=== PATIENT | female | born 1940 | race Caucasian/White ===

== ENCOUNTER 2019-03-17 18:34 | Emergency (ER) | payer MEDICARE, OTHER ==
[2019-03-17] MEDS ORDERED: OXYCODONE-ACETAMINOPHEN 5-325 MG TABLET PO ONE (18:46)
--- NOTE | 2019-03-17 18:51 | ER Document Report ---
ED Medical Screen (RME) - General Chief Complaint: Facial Injury Stated Complaint: FALL/HEAD INJURY Time Seen by Provider: 03/17/19 18:40 Mode of Arrival: Wheelchair Information source: Patient, Relative - Notes: Patient is a 78-year-old female presenting to the emergency department after falling. Patient reports she fell down 3 concrete steps. Patient states she is unsure what made her fall, she does not recall the events leading up to the fall. She is unsure if she felt dizzy or faint prior to the fall. She does have a laceration to the left side of her face over the temporal area, she states that she has pain with talking and moving her jaw. She also has a deformity to her left forearm area near the wrist. I have greeted and performed a rapid initial assessment of this patient. A comprehensive ED assessment and evaluation of the patient, analysis of test results and completion of the medical decision making process will be conducted by additional ED providers. I have specifically instructed the patient or family members with the patient to immediately return to any nursing staff should anything change in the patient's condition or with their chief complaint. This medical record was dictated with voice recognizing software. There may be grammatical, syntax errors that are unintended. Physical Exam - Vital signs Vitals: Temp Pulse Resp BP Pulse Ox 97.8 F 75 20 150/75 H 99 03/17/19 18:40 03/17/19 18:40 03/17/19 18:40 03/17/19 18:40 03/17/19 18:40 Course - Vital Signs Vital signs: Temp Pulse Resp BP Pulse Ox 97.8 F 75 20 150/75 H 99 03/17/19 18:40 03/17/19 18:40 03/17/19 18:40 03/17/19 18:40 03/17/19 18:40
--- NOTE | 2019-03-17 19:49 | RADIOLOGY REPORT (SQ) ---
EXAM DESCRIPTION: FOREARM LEFT COMPLETED DATE/TIME: 03/17/2019 7:20 pm REASON FOR STUDY: fall, pain in FA and wrist COMPARISON: None. NUMBER OF VIEWS: Two views. TECHNIQUE: Two radiographic images acquired of the left forearm, including elbow and wrist in at jose [facility] one projection. LIMITATIONS: None. FINDINGS: MINERALIZATION: Normal. BONES: Displaced fracture of the distal left radius with volar and medial displacement of distal radi al fracture fragment and volar displacement of the wrist. Fracture through the base ulnar styloid. Degenerative arthritis 1st carpometacarpal joint. OTHER: Soft tissue swelling seen. IMPRESSION: Evidence of a distal left radial fracture with volar and medial displacement distal frac ture fragment fracture through ulna styloid. TECHNICAL DOCUMENTATION: JOB ID: [id number] [employer]- All Rights Reserved Reading location - IP/workstation name: [email or web address]
[2019-03-17 19:58] LABS: ABSOLUTE BASOPHILS # (AUTO) 0.1 10^3/uL (0.0-0.2); ABSOLUTE EOSINOPHILS # (AUTO) 0.1 10^3/uL (0.0-0.6); ABSOLUTE LYMPHOCYTES (AUTO) 1.2 10^3/uL (0.5-4.7); ABSOLUTE MONOCYTES (AUTO) 0.4 10^3/uL (0.1-1.4); BASOPHILS % (AUTO) 0.8 % (0-2); HEMATOCRIT 37.5 % (36.0-47.0); HEMOGLOBIN 12.5 g/dL (12.0-15.5); LYMPHOCYTES % (AUTO) 17.5 % (13-45); MEAN CORPUSCULAR HEMOGLOBIN 29.4 pg (27.0-33.4); MEAN CORPUSCULAR HGB CONC 33.3 g/dL (32.0-36.0); MEAN CORPUSCULAR VOLUME 88 fl (80-97); MONOCYTES % (AUTO) 5.6 % (3-13); PLATELET COUNT 270 10^3/uL (150-450); RED BLOOD COUNT 4.25 10^6/uL (3.72-5.28); RED CELL DISTRIBUTION WIDTH 14.5 % (11.5-14.0); SEGMENTED NEUTROPHILS % (AUTO) 75.1 % (42-78); TOTAL CELLS COUNTED % (AUTO) 100 %; WHITE BLOOD COUNT 6.6 10^3/uL (4.0-10.5)
[2019-03-17] MEDS ORDERED: DIPH/PERTUSS(ACELL)/TETANUS VAC/PF 0.5 ML SYR (>=10YO) IM ONE (20:17)
[2019-03-17] MEDS ORDERED: MORPHINE SULFATE 10 MG/ML INJ IV ONE (20:17)
[2019-03-17] MEDS ORDERED: ONDANSETRON HCL INJ/PF 4 MG/2 ML SDV IV ONE (20:17)
[2019-03-17] MEDS ORDERED: LIDOCAINE 1% INJ (10 MG/ML) 10 ML MDV INJ ONE ×2 (20:18→22:34)
[2019-03-17] MEDS ORDERED: LIDOCAINE 1%/EPINEPHRINE INJ 20 ML VIAL INJ ONE ×2 (20:18→22:32)
[2019-03-17 20:19] LABS: ALBUMIN 4.9 g/dL (3.5-5.0); ALKALINE PHOSPHATASE 67 U/L (38-126); ANION GAP 12 (5-19); ASPARTATE AMINO TRANSFERASE 27 U/L (14-36); BILIRUBIN,DIRECT 0.2 mg/dL (0.0-0.4); BILIRUBIN,TOTAL 0.3 mg/dL (0.2-1.3); BLOOD UREA NITROGEN 25 mg/dL (7-20); CARBON DIOXIDE 27 mmol/L (22-30); CHLORIDE 104 mmol/L (98-107); GLUCOSE 76 mg/dL (75-110); POTASSIUM 3.8 mmol/L (3.6-5.0); TOTAL PROTEIN 8.4 g/dL (6.3-8.2)
--- NOTE | 2019-03-17 20:19 | RADIOLOGY REPORT (SQ) ---
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 COMPARISON: None. TECHNIQUE: CT scan of the brain, cervical spine, and facial bones without IV contrast. This exam was performed according to our departmental dose-optimization program, which includes automated exposure control, adjustment of the mA and/or kV according to patient size and/or use of iterative reconstruction technique. FINDINGS: BRAIN: The ventricles, cisterns, and sulci are age-appropriate. No evidence of acute infarction, intracranial hemorrhage, extra-axial fluid collection, or midline shift. No depressed skull fracture. CERVICAL SPINE: No acute cervical fracture or prevertebral soft tissue swelling is seen. There is straightening of the normal cervical lordosis, which may be due to cervical collar, muscle spasm, or patient positioning. Multilevel degenerative disc disease along with facet arthropathy is present. No advanced spinal canal stenosis. FACIAL BONES: No acute facial bone fracture is seen. No air-fluid levels are seen in the paranasal sinuses. The mastoid air cells are clear. No retrobulbar mass or hematoma is identified. There is mild left facial and scalp soft tissue swelling. IMPRESSION: 1. No acute intracranial abnormality. 2. No acute fracture or subluxation of the cervical spine. 3. No acute maxillofacial fracture.
--- NOTE | 2019-03-17 20:19 | RADIOLOGY REPORT (SQ) ---
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 COMPARISON: None. TECHNIQUE: CT scan of the brain, cervical spine, and facial bones without IV contrast. This exam was performed according to our departmental dose-optimization program, which includes automated exposure control, adjustment of the mA and/or kV according to patient size and/or use of iterative reconstruction technique. FINDINGS: BRAIN: The ventricles, cisterns, and sulci are age-appropriate. No evidence of acute infarction, intracranial hemorrhage, extra-axial fluid collection, or midline shift. No depressed skull fracture. CERVICAL SPINE: No acute cervical fracture or prevertebral soft tissue swelling is seen. There is straightening of the normal cervical lordosis, which may be due to cervical collar, muscle spasm, or patient positioning. Multilevel degenerative disc disease along with facet arthropathy is present. No advanced spinal canal stenosis. FACIAL BONES: No acute facial bone fracture is seen. No air-fluid levels are seen in the paranasal sinuses. The mastoid air cells are clear. No retrobulbar mass or hematoma is identified. There is mild left facial and scalp soft tissue swelling. IMPRESSION: 1. No acute intracranial abnormality. 2. No acute fracture or subluxation of the cervical spine. 3. No acute maxillofacial fracture.
--- NOTE | 2019-03-17 20:37 | ER Document Report ---
ED Fall - General Chief Complaint: Fall Stated Complaint: FALL/HEAD INJURY Time Seen by Provider: 03/17/19 18:40 Mode of Arrival: Wheelchair Information source: Patient, Relative - Notes: Ms. Hilliard is a 78 yo F w/ PMH fibromyalgia, lupus presenting to the ED after a fall. Patient states the majority of her pain is in her left wrist. She recalls walking down the stairs and tripping over her legs but is not confident exactly what time she fell. She saw a text message from her in approximately 5 Timmy V 15. states that he returned from a fishing trip at around 10/11/2014. She had fallen sometime in between there and when he open the garage door, the patient stood up. She does believe that she had some LOC. Has been states that the blood on her face and shirt were dried by the time he came home. She endorses a headache. She denies any hip pain or chest pain. She denies any presyncopal symptoms and is confident that she tripped down the stairs over the concrete. Patient is not 100% confident when her last tetanus shot was but is amenable to a repeat today. Patient states that she has left jaw pain as well and swelling to the left anterior jaw. - Related data Allergies/Adverse Reactions: No Known Allergies Allergy (Unverified 03/17/19 20:35) Home Medications: aspirin. lisinopril. trazodone. tramadol. melatonin. simvastatin. zoloft Past Medical History - General Information source: Patient, Relative - - Social History Smoking Status: Never Smoker Chew tobacco use (# tins/day): No Frequency of alcohol use: None Drug Abuse: None Family History: Reviewed & Not Pertinent Patient has suicidal ideation: No Patient has homicidal ideation: No Review of Systems - Review of Systems Constitutional: See HPI EENT: See HPI Cardiovascular: No symptoms reported Respiratory: No symptoms reported Gastrointestinal: No symptoms reported Genitourinary: No symptoms reported Female Genitourinary: No symptoms reported Musculoskeletal: See HPI Skin: No symptoms reported Hematologic/Lymphatic: No symptoms reported Neurological/Psychological: No symptoms reported Physical Exam - Vital signs Vitals: Temp Pulse Resp BP Pulse Ox 97.8 F 75 20 150/75 H 99 03/17/19 18:40 03/17/19 18:40 03/17/19 18:40 03/17/19 18:40 03/17/19 18:40 Interpretation: Hypertensive - General General appearance: Appears well, Alert, Other - uncomfortable appearing In distress: Mild - HEENT Head: Normocephalic Eyes: Normal, Periorbital ecchymosis, Periorbital edema, Other - Swelling to the left lateral eye and under the left eye. There is a 1-1/2 cm gaping wound to the left lateral eyebrow. Pupils: PERRL Mouth/Lips: Other - Swelling to the left portion of the mouth and left jaw as well as left mandible. Ecchymosis noted over the area. Small 0.5 cm laceration to left lateral lower mouth. Neck: Normal - Normal range of motion. No midline tenderness to palpation of cervical spine. - Respiratory Respiratory status: No respiratory distress Chest status: Nontender Breath sounds: Normal Chest palpation: Normal - Cardiovascular Rhythm: Regular Heart sounds: Normal auscultation Murmur: No - Abdominal Inspection: Normal Distension: No distension Bowel sounds: Normal Tenderness: Nontender Organomegaly: No organomegaly - Back Back: Normal, Nontender - Extremities General upper extremity: Normal color, Normal temperature, Other - Deformity to left distal wrist with ecchymosis to the left lateral portion. Neurovascularly intact with 2+ pulses bilaterally. General lower extremity: Normal inspection, Nontender, Normal color, Normal ROM, Normal temperature, Normal weight bearing. No: Teja's sign - Neurological Neuro grossly intact: Yes Cognition: Normal Orientation: AAOx4 Amber Coma Scale Eye Opening: Spontaneous Amber Coma Scale Verbal: Oriented Lowell Coma Scale Motor: Obeys Commands Amber Coma Scale Total: 15 Speech: Normal Motor strength normal: LUE, RUE, LLE, RLE Sensory: Normal - Psychological Associated symptoms: Normal affect, Normal mood - Skin Skin Temperature: Warm Skin Moisture: Dry Skin Color: Other - Ecchymosis to left thumb extending down to the DIP. Also ecchymosis to left larson extending inferiorly and posteriorly to the mandible. Also ecchymosis to left lateral wrist. Course - Re-evaluation Re-evalutation: Patient is generally well-appearing but appears uncomfortable. Initial vitals notable for mildly elevated blood pressure. Differential diagnosis includes distal radial fracture, open fracture, contusion, facial fracture, ICH, rhabdomyolysis, laceration, abrasion. 03/17/19 20:46 Given the fact that the patient is unsure when her tetanus truly was and if it was in the past 5 to 10 years, will give a repeat tetanus now. Patient will re quire reduction of the left radial fracture. She does have a small superficial abrasion to the left dorsal surface near the ulnar side. However upon further examination palpation, this does not appear to be an open fracture. Just superficial abrasion. Good radial pulses intact equal bilaterally. Patient will require hematoma block and then reduction. Wounds to the face will also require laceration repair with sutures. CT of facial bones, head and C-spine all negative for acute traumatic injury. 03/17/19 22:39 Left wrist fracture was reduced after lidocaine 1% hematoma block. Patient to lerated procedure well. Placed in volar splint. Will obtain postreduction x- ray. Patient will also be provided with a left arm sling. Lacerations on the face were repaired both to the left upper eyebrow as well as the left chin. 03/18/19 00:58 Patient was noted to have swelling and ecchymosis to the left thumb. X-ray obtained. Shows evidence of fracture of both the distal and proximal first phalanx. Patient was then placed in a thumb spica in addition to the volar splint for the wrist. 03/18/19 01:09 Patient will be provided with Motrin, Percocet as well as famotidine. Patient given return precautions and instructed to follow-up with orthopedics. - Vital Signs Vital signs: Temp Pulse Resp BP Pulse Ox 97.8 F 75 17 141/125 H 97 03/17/19 18:40 03/17/19 18:40 03/17/19 21:01 03/17/19 22:01 03/17/19 22:01 - Laboratory Result Diagrams: 03/17/19 19:41 03/17/19 19:41 Laboratory results interpreted by me: 03/17/19 03/17/19 19:41 19:41 RDW 14.5 H BUN 25 H Est GFR (MDRD) Non-Af 50 L Total Protein 8.4 H Procedures - Immobilization Left Volar Wrist Pre-Proc Neuro Vasc Exam: Normal Immobilizer type: Volar splint Performed by: Provider assisted, PCT Post-Proc Neuro Vasc Exam: Normal Alignment checked and good: Yes - improved fx alignment Left Thumb Pre-Proc Neuro Vasc Exam: Normal Immobilizer type: Thumb spica Performed by: PCT Post-Proc Neuro Vasc Exam: Normal Alignment checked and good: Yes - Joint Reduction/Fracture Care Left Wrist Consent obtained: Yes Conscious sedation: No - hematoma block w/ 30 mL lidocaine 1% (plain) Pre-procedure NV exam: Yes - intact Fracture: Closed Manipulation comment: traction and dorsal manipulation Post-procedure NV exam: Yes - intact Post-reduction x-ray: Joint reduced Reduction attempts: 1 Complications: No - Laceration/Wound Repair Left Face Wound length (cm): 2 Wound's Depth, Shape: Into muscle, Linear Laceration pre-procedure: Sterile PPE donned, Sterile drapes applied, Shur-Clens applied Anesthetic type: 1% Lidocaine w/epi Volume Anesthetic (mLs): 12 Wound explored: Clean, No foreign body removed Irrigated w/ Saline (mLs): 15 Wound Debrided: Minimal Wound Repaired With: Sutures Suture Size/Type: 4:0, Prolene Number of Sutures: 2 Layer Closure?: Yes - 2 Deep Layer Suture Size/Type: 4:0, Other - vicryl Number Deep Layer Sutures: 2 Post-procedure wound care: Sterile dressing applied Post-procedure NV exam normal: Yes - intact Complications: No Adult Head Front/Back picture: 1 - 2 cm deep lac Left Head Wound length (cm): 0.5 Wound's Depth, Shape: Superficial, Linear Anesthetic type: 1% Lidocaine w/epi Volume Anesthetic (mLs): 5 Wound explored: Clean, No foreign body removed Irrigated w/ Saline (mLs): 15 Wound Debrided: Minimal Wound Repaired With: Sutures Suture Size/Type: 4:0, Prolene Number of Sutures: 1 Layer Closure?: No Adult Head Front/Back picture: 1 - 0.5 lac Discharge - Discharge Clinical Impression: Dislocation of left ulnar styloid, Superficial abrasion, Fracture of one or more phalanges of hand Fall Qualifiers: Encounter type: initial encounter Qualified Code(s): W19.XXXA - Unspecified fall, initial encounter Facial laceration Qualifiers: Encounter type: initial encounter Qualified Code(s): S01.81XA - Laceration without foreign body of other part of head, initial encounter Fracture of left distal radius Qualifiers: Encounter type: initial encounter Fracture type: closed Fracture morphology: unspecified fracture morphology Qualified Code(s): S52.502A - Unspecified fracture of the lower end of left radius, initial encounter for closed fracture Condition: Good Disposition: HOME, SELF-CARE Instructions: Tetanus Immunization Given ([facility]), Oral Narcotic Medication ([facility]), Fractured Radius and Ulna ([facility]), Facial Laceration ([facility]), Splint Precautions ([facility]), Temporary Splint ([facility]), Fractured Thumb ([facility]) Additional Instructions: It is important that you have your facial sutures removed in 5 to 7 days. You have one suture in the chain and 2 in the eyebrow that need to be removed. All the sutures that need to be removed are blue in coloration. If you notice signs of infection such as redness, swelling, pus, or worsening pain, please return to the ED for further evaluation. It is also important that you follow-up with orthopedics as soon as possible. I would recommend that you give them a call, likely they will want to evaluate you between 1 to 2 weeks from the initial fall. It is also important that you keep your left wrist and hand elevated as much as possible throughout the day and night to help prevent swelling and therefore worsening pain. Keep the splint on and try not to get it wet as this will cause it to get soft again and therefore become essentially useless. If you develop severe pain, decreased ability to move your fingers, coldness in the fingers, or any other concerning symptoms, please return to the ED for further evaluation. You have been provided with Motrin that I would like you to take 3 times a day standing. Make sure you always take Motrin with food in your stomach. You have also been provided with Percocet for your fractures. Use the Percocet only as needed for breakthrough pain. Any time that you need to use a Percocet, you need to take a stool softener in addition. Prescriptions: Famotidine 40 mg PO BID #60 tablet Ibuprofen [Motrin 600 Mg Tablet] 600 mg PO TID #90 tablet Oxycodone HCl/Acetaminophen [Percocet 5-325 mg Tablet] 1 tab PO Q6 #15 tablet Referrals: TISHA JARRELL JR, [ACTIVE PROVISIONAL STAFF] - Follow up as needed
--- NOTE | 2019-03-17 21:14 | RADIOLOGY REPORT (SQ) ---
XR FINGERS CLINICAL STATEMENT: fall, pain, swelling COMPARISON: None FINDINGS: Comminuted distal radius fracture with significant palmar displacement of the distal radius fracture fragment. Fracture fragments are completely displaced and overriding, intra-articular. Mild degenerative changes of the first carpometacarpal joint. Mildly displaced fracture of the first digit distal phalanx and minimally displaced fracture of the base of the first digit proximal phalanx. Mildly displaced ulnar styloid avulsion fracture. IMPRESSION: Comminuted distal radius fracture with significant palmar displacement of the fracture fragments. First digit proximal and distal phalanx fracture as well.
[2019-03-17] MEDS ORDERED: LIDOCAINE 1% INJ-PF (10 MG/ML) 30 ML SDV ONE (21:43)
[2019-03-17] MEDS ORDERED: KETOROLAC TROMETHAMINE INJ/PF 30 MG/1 ML SDV IV ONE (22:31)
--- NOTE | 2019-03-17 23:11 | RADIOLOGY REPORT (SQ) ---
EXAM DESCRIPTION: XR WRIST 1-2 VIEWS COMPLETED DATE/TME: 03/17/2019 22:33 CLINICAL HISTORY: 78 years, Female, s/p reduction COMPARISON: Prior study from earlier the same day NUMBER OF VIEWS: Two views were obtained. TECHNIQUE: Frontal and lateral radiographs of the left hand were acquired LIMITATIONS: None. FINDINGS: Overlying splint obscures fine bony detail. Visualized is a focal fracture deformity involving the first distal phalangeal shaft. Associated overlying soft tissue swelling is noted. There is slight dorsal displacement of the distal fracture fragment. In addition, there is a separate fracture deformity involving the distal radial metaphysis with volar angulation of the distal fracture fragment. Alignment appears improved from the previous exam. There is associated displacement of the pronator fat pad indicating the presence of an effusion. There is also an ulnar styloid avulsion injury. Additional fracture deformity involving the first proximal phalanx is not well visualized on this exam. IMPRESSION: Improved alignment of impaction fracture involving the distal radial metaphysis which demonstrates persistent volar angulation. Mildly displaced fracture involving the first distal phalanx. Ulnar styloid avulsion injury. copyright 2010 [employer]- All Rights Reserved
--- NOTE | 2019-03-17 23:19 | EKG REPORT ---
SEVERITY:- NORMAL ECG - SINUS RHYTHM : Confirmed by: Joanna Bush 17-Mar-2019 23:18:25
[2019-03-18 00:50] LABS: APPEARANCE,URINE CLEAR; BILIRUBIN,URINE NEGATIVE (NEGATIVE); COLOR,URINE YELLOW; GLUCOSE, URINE NEGATIVE (NEGATIVE); KETONES,URINE NEGATIVE (NEGATIVE); LEUKOCYTE ESTERASE,URINE NEGATIVE (NEGATIVE); NITRITE,URINE NEGATIVE (NEGATIVE); PROTEIN,URINE NEGATIVE (NEGATIVE); URINE SPECIFIC GRAVITY 1.019; UROBILINOGEN,URINE NEGATIVE mg/dL (<2.0)
[2019-03-18 01:17] VITALS: BP 134/50
== END 2019-03-18 01:24 | disposition home or self-care (01) ==
LOC: ER 18:34
DX: S52.502A Unspecified fracture of the lower end of left radius, initial encounter for closed fracture (principal); S62.522A Displaced fracture of distal phalanx of left thumb, initial encounter for closed fracture; S62.513A Displaced fracture of proximal phalanx of unspecified thumb, initial encounter for closed fracture; S09.12XA Laceration of muscle and tendon of head, initial encounter; S01.112A Laceration without foreign body of left eyelid and periocular area, initial encounter; S01.81XA Laceration without foreign body of other part of head, initial encounter; S01.512A Laceration without foreign body of oral cavity, initial encounter; S63.075A Dislocation of distal end of left ulna, initial encounter; S60.019A Contusion of unspecified thumb without damage to nail, initial encounter; M25.532 Pain in left wrist; R51 Headache; R68.84 Jaw pain; W10.9XXA Fall (on) (from) unspecified stairs and steps, initial encounter; Z79.82 Long term (current) use of aspirin; Z79.899 Other long term (current) drug therapy; Z23 Encounter for immunization
CPT/HCPCS: 93005; 99284; 90471; 96374; 96375; 36415; 82550; 85025; 80053; 81001; 84484; 73140; 73090; 73100; 70450; 70486; 72125; 90715; 93010; 12051; 12011; 25605; J3490; J1885; J2270; A9270; J2405

== ENCOUNTER 2019-03-23 08:05 | Emergency (ER) | payer MEDICARE ==
--- NOTE | 2019-03-23 09:28 | ER Document Report ---
HPI - HPI Patient complains to provider of: suture removal Time Seen by Provider: 03/23/19 08:56 Onset: Other Quality of pain: Achy Pain Level: 2 Context: 78-year-old female presents today with request for suture removal from the left side of her face. Has several sutures to the left eyebrow left side of her lip. Patient reports she got tangled up in her feet and fell a couple days ago. P atmilagro was evaluated here multiple x-rays and CT were done. Patient was positive for left wrist fracture left thumb for a fracture. Patient has an appoint with Dr. Jarrell on Monday. Drainage noted on Luis Enrique wrap. She denies fever vomiting diarrhea. Does report some nausea and reports she does not feel very well today. Associated Symptoms: None Exacerbated by: Movement Relieved by: Denies Similar symptoms previously: Yes Recently seen / treated by doctor: Yes - CONSTITUTIONAL Constitutional: DENIES: Fever, Chills - MUSCULOSKELETAL Musculoskeletal: REPORTS: Extremity pain Past Medical History - General Information source: Patient - Social History Smoking Status: Never Smoker Chew tobacco use (# tins/day): No Frequency of alcohol use: None Drug Abuse: None Lives with: Family Family History: Reviewed & Not Pertinent Patient has suicidal ideation: No Patient has homicidal ideation: No Past Surgical History: Reports: Hx Appendectomy, Hx Orthopedic Surgery Vertical Provider Document - CONSTITUTIONAL Agree With Documented VS: Yes Exam Limitations: No Limitations General Appearance: WD/WN, No Apparent Distress - HEENT HEENT: negative: Conjuctival Injection - NECK Neck: Supple - RESPIRATORY Respiratory: No Respiratory Distress - CARDIOVASCULAR Cardiovascular: Regular Rate - MUSCULOSKELETAL/EXTREMETIES Musculoskeletal/Extremeties: Tender - NEURO Level of Consciousness: Awake, Alert, Appropriate - DERM Integumentary: Warm, Dry, Laceration Adult Front & Back Diagram: 1 - sutures intact site benign 2 - suture intact site benign 3 - skin tear noted, no drainage, no erythema,no warmth no swelling Course - Re-evaluation Re-evalutation: 03/23/19 09:37 78-year-old female presents with request for suture removal. She does have some drainage to the outside of her Luis Enrique wrap to the left wrist where she has a fracture. The suture's were removed without problems. Luis Enrique wrap and splint removed are visualized. Obvious deformity cap refill less than 3 seconds good radial pulse. Skin tear noted to left dorsal forearm no erythema no swelling no warmth. Patient reports she feels nauseated and did feel good. She denies fever vomiting diarrhea. Patient was offered to stay for further treatment but declined. Patient was instructed on the importance of follow-up with Dr. Jarrell on Monday. She was also instructed to return here for feeling worse. She verbalized understanding. Patient was given a copy of all her x-rays because she lives in [place]. Dictation of this chart was performed using voice recognition software; therefore, there may be some unintended grammatical errors. - Vital Signs Vital signs: Temp Pulse Resp BP Pulse Ox 97.7 F 79 20 173/74 H 92 03/23/19 08:17 03/23/19 08:17 03/23/19 08:17 03/23/19 08:17 03/23/19 08:17 Procedures - Immobilization Left Wrist Pre-Proc Neuro Vasc Exam: Normal Immobilizer type: Thumb spica, Volar splint Performed by: PCT Post-Proc Neuro Vasc Exam: Unchanged from pre-exam Alignment checked and good: Yes Discharge - Discharge Clinical Impression: Visit for suture removal Condition: Stable Disposition: HOME, SELF-CARE Instructions: Suture Removal Additional Instructions: *You have been treated for your suture removal *Monitor your skin for signs of infection such as increasing pain, redness, swelling, warmth *Take Tylenol or Motrin as indicated for pain *Follow up with Dr. Jarrell as scheduled Monday *Return to ED for signs of infection, worsening condition, changes, needs, increased arm pain fever concerns Referrals: TISHA JARRELL JR, DO [ACTIVE PROVISIONAL STAFF] - 03/26/19 9:20 am
[2019-03-23 09:54] VITALS: BP 155/85
== END 2019-03-23 09:55 | disposition home or self-care (01) ==
LOC: ER 08:05
PROC: 2W3DX1Z Immobilization of Left Lower Arm using Splint (ICD-10-PCS; principal; 2019-03-23)
DX: S01.81XD Laceration without foreign body of other part of head, subsequent encounter (principal); S62.102D Fracture of unspecified carpal bone, left wrist, subsequent encounter for fracture with routine healing; S62.502D Fracture of unspecified phalanx of left thumb, subsequent encounter for fracture with routine healing; W19.XXXD Unspecified fall, subsequent encounter
CPT/HCPCS: 99282

== ENCOUNTER 2019-03-28 07:37 | Day surgery (SDC) | payer MEDICARE, BC ==
[~2019-03-28 07:37] MED LIST: ACETAMINOPHEN 325 MG TABLET PO PRN; BUPIVACAINE HCL 0.25 % INJ/PF (2.5 MG/1 ML) 30 ML VIAL ONE; CEFAZOLIN SODIUM 2 GM in DEXTROSE 5%-WATER 100 ML IV PRN; DEXAMETHASONE SOD PHOSPHATE INJ 4 MG/1 ML VIAL ONE; FENTANYL CITRATE INJ/PF 100 MCG/2 ML AMPUL ONE; KETOROLAC TROMETHAMINE 60 MG/2 ML SDV ONE; LIDOCAINE 0.5% INJ-PF (5 MG/ML) 50 ML SDV ONE; MIDAZOLAM 2 MG/2 ML INJ ONE; ONDANSETRON HCL INJ/PF 4 MG/2 ML SDV ONE; OXYCODONE HCL SR 10 MG TABLET PO PRN; PROPOFOL INJ 200 MG/20 ML VIAL IV ONE
== END 2019-03-28 11:00 | disposition home or self-care (01) ==
LOC: OROUT 07:37
PROVIDERS: ATTEND Orthopaedic Surgery
DX: S52.502A Unspecified fracture of the lower end of left radius, initial encounter for closed fracture (principal); X58.XXXA Exposure to other specified factors, initial encounter; Z53.8 Procedure and treatment not carried out for other reasons
CPT/HCPCS: J0690; J3490; J7060; J1100; J1885; J2250; J2405; J2704; J3010

== ENCOUNTER 2019-04-02 10:21 | Day surgery (SDC) | payer MEDICARE, BC ==
[~2019-04-02 10:21] MED LIST changes: -ACETAMINOPHEN 325 MG TABLET PO PRN; -BUPIVACAINE HCL 0.25 % INJ/PF (2.5 MG/1 ML) 30 ML VIAL ONE; -DEXAMETHASONE SOD PHOSPHATE INJ 4 MG/1 ML VIAL ONE; -FENTANYL CITRATE INJ/PF 100 MCG/2 ML AMPUL ONE; -KETOROLAC TROMETHAMINE 60 MG/2 ML SDV ONE; -LIDOCAINE 0.5% INJ-PF (5 MG/ML) 50 ML SDV ONE; -MIDAZOLAM 2 MG/2 ML INJ ONE; -ONDANSETRON HCL INJ/PF 4 MG/2 ML SDV ONE; -PROPOFOL INJ 200 MG/20 ML VIAL IV ONE
[2019-04-02] MEDS ORDERED: LIDOCAINE 2% INJ (20 MG/ML) 20 ML MDV ONE (11:50)
[2019-04-02] MEDS ORDERED: LIDOCAINE 2%/EPINEPHRINE INJ 20 ML VIAL ONE ×2 (11:50→15:51)
[2019-04-02] MEDS ORDERED: ROPIVACAINE HCL 0.5% INJ/PF (5 MG/1 ML) 30 ML SDV ONE ×2 (11:50→15:51)
[2019-04-02] MEDS ORDERED: OXYCODONE HCL SR 10 MG TABLET PO ONE ×3 (12:12→19:15)
[2019-04-02] MEDS ORDERED: ACETAMINOPHEN 325 MG TABLET ONE ×2 (12:12→12:35)
[2019-04-02] MEDS ORDERED: MIDAZOLAM 2 MG/2 ML INJ ONE (12:12)
[2019-04-02] MEDS: ACETAMINOPHEN 325 MG TABLET PO PRN ×2 (12:45→13:55)
[2019-04-02] MEDS ORDERED: PROPOFOL INJ 200 MG/20 ML VIAL IV ONE (13:35)
[2019-04-02] MEDS ORDERED: BUPIVACAINE HCL 0.25 % INJ/PF (2.5 MG/1 ML) 30 ML VIAL ONE (13:36)
[2019-04-02] MEDS ORDERED: PROMETHAZINE HCL INJ 25 MG/1 ML VIAL IV PRN ×2 (14:19)
[2019-04-02] MEDS ORDERED: MEPERIDINE HCL/PF INJ 25 MG/1 ML DISP.SYRIN IV PRN (14:19)
[2019-04-02] MEDS ORDERED: FENTANYL CITRATE INJ/PF 100 MCG/2 ML AMPUL IV PRN ×2 (14:19)
[2019-04-02] MEDS ORDERED: DIPHENHYDRAMINE HCL 50 MG/ML VIAL IV PRN (14:19)
[2019-04-02] MEDS ORDERED: LABETALOL HCL INJ 20 MG/4 ML DISP.SYRIN IV ONE (14:24)
[2019-04-02] MEDS ORDERED: FENTANYL CITRATE INJ/PF 100 MCG/2 ML AMPUL ONE ×2 (14:25→15:47)
[2019-04-02] MEDS ORDERED: LIDOCAINE 1% INJ-PF (10 MG/ML) 30 ML SDV ONE (14:56)
[2019-04-02] MEDS ORDERED: LIDOCAINE 1% INJ (10 MG/ML) 10 ML MDV INJ ONE (15:17)
[2019-04-02] MEDS ORDERED: BUPIVACAINE HCL 0.25 % INJ/PF (2.5 MG/1 ML) 30 ML VIAL INJ ONE (15:17)
[2019-04-02] MEDS: FENTANYL CITRATE INJ/PF 100 MCG/2 ML AMPUL IV PRN ×2 (15:44→16:05)
--- NOTE | 2019-04-02 15:58 | RADIOLOGY REPORT (SQ) ---
EXAM DESCRIPTION: NO CHG FLUORO; WRIST LEFT 2 VIEWS COMPLETED DATE/TIME: 04/02/2019 3:48 pm; 04/02/2019 3:45 pm REASON FOR STUDY: LEFT WRIST ASSISTED WITH FLUORO IN OR; POST OP S52.502A UNSP FRACTURE OF THE LOWE R END OF LEFT RADIUS, INIT COMPARISON: None. FLUOROSCOPY TIME: 25 seconds 4 images saved to PACS. TECHNIQUE: Intra-operative images acquired during surgical procedure to evaluate progress. NUMBER OF IMAGES: For LIMITATIONS: None. FINDINGS: Limited intraoperative fluoroscopic images demonstrate evidence of distal radial plate scr ew fixation. Please see operative report for detailed description. IMPRESSION: IMAGE(S) OBTAINED DURING PROCEDURE. COMMENT: Quality ID [id number]: Final reports for procedures using fluoroscopy that document radiation exp osure indices, or exposure time and number of fluorographic images (if radiation exposure indices are not available) Please consult full operative report of the attending physician for description of the procedure. TECHNICAL DOCUMENTATION: JOB ID: [id number] [employer]- All Rights Reserved Reading location - IP/workstation name: [email or web address]
--- NOTE | 2019-04-02 15:58 | RADIOLOGY REPORT (SQ) ---
EXAM DESCRIPTION: NO CHG FLUORO; WRIST LEFT 2 VIEWS COMPLETED DATE/TIME: 04/02/2019 3:48 pm; 04/02/2019 3:45 pm REASON FOR STUDY: LEFT WRIST ASSISTED WITH FLUORO IN OR; POST OP S52.502A UNSP FRACTURE OF THE LOWE R END OF LEFT RADIUS, INIT COMPARISON: None. FLUOROSCOPY TIME: 25 seconds 4 images saved to PACS. TECHNIQUE: Intra-operative images acquired during surgical procedure to evaluate progress. NUMBER OF IMAGES: For LIMITATIONS: None. FINDINGS: Limited intraoperative fluoroscopic images demonstrate evidence of distal radial plate scr ew fixation. Please see operative report for detailed description. IMPRESSION: IMAGE(S) OBTAINED DURING PROCEDURE. COMMENT: Quality ID 145: Final reports for procedures using fluoroscopy that document radiation exp osure indices, or exposure time and number of fluorographic images (if radiation exposure indices are not available) Please consult full operative report of the attending physician for description of the procedure. TECHNICAL DOCUMENTATION: JOB ID: [id number] [employer]- All Rights Reserved Reading location - IP/workstation name: [email or web address]
--- NOTE | 2019-04-02 15:58 | RADIOLOGY REPORT (SQ) ---
EXAM DESCRIPTION: NO CHG FLUORO; WRIST LEFT 2 VIEWS COMPLETED DATE/TIME: 04/02/2019 3:48 pm; 04/02/2019 3:45 pm REASON FOR STUDY: LEFT WRIST ASSISTED WITH FLUORO IN OR; POST OP S52.502A UNSP FRACTURE OF THE LOWE R END OF LEFT RADIUS, INIT COMPARISON: None. FLUOROSCOPY TIME: 25 seconds 4 images saved to PACS. TECHNIQUE: Intra-operative images acquired during surgical procedure to evaluate progress. NUMBER OF IMAGES: For LIMITATIONS: None. FINDINGS: Limited intraoperative fluoroscopic images demonstrate evidence of distal radial plate scr ew fixation. Please see operative report for detailed description. IMPRESSION: IMAGE(S) OBTAINED DURING PROCEDURE. COMMENT: Quality ID 145: Final reports for procedures using fluoroscopy that document radiation exp osure indices, or exposure time and number of fluorographic images (if radiation exposure indices are not available) Please consult full operative report of the attending physician for description of the procedure. TECHNICAL DOCUMENTATION: JOB ID: [id number] [employer]- All Rights Reserved Reading location - IP/workstation name: [email or web address]
[2019-04-02] MEDS ORDERED: ACETAMINOPHEN 1,000 MG/100 ML RTUPB IV ONE (16:25)
[2019-04-02] MEDS ORDERED: OXYCODONE HCL IR 5 MG TABLET PO PRN ×2 (16:28→16:29)
[2019-04-02] MEDS ORDERED: MORPHINE SULFATE 10 MG/ML INJ IV PRN (16:30)
[2019-04-02] MEDS ORDERED: DIPHENHYDRAMINE HCL 25 MG CAPSULE PO PRN (16:32)
[2019-04-02] MEDS ORDERED: HYDROMORPHONE HCL INJ/PF 2 MG/ML AMPULE ONE (16:32)
[2019-04-02] MEDS ORDERED: ONDANSETRON 4 MG TAB.RAPDIS PO PRN (16:33)
[2019-04-02] MEDS ORDERED: TRAMADOL HCL 50 MG TABLET PO SCH (17:00)
--- NOTE | 2019-04-02 17:34 | Operative Report ---
Operative Report DATE OF SURGERY: 04/02/19 PREOPERATIVE DIAGNOSIS: left distal radius and ulna styloid fracture POSTOPERATIVE DIAGNOSIS: Left distal radius and ulna fracture OPERATION: Left distal radius open reduction internal fixation. SURGEON: TISHA JARRELL JR ANESTHESIA: Local COMPLICATIONS: None ESTIMATED BLOOD LOSS: 10 cc PROCEDURE: INDICATIONS FOR OPERATION: This is a 78 year-old female who fell down the stairs and landed on her left outstretched hand, sustained a left distal radius fracture. The patient was seen and evaluated initially at the hospital where she had x-rays. I saw her in the clinic where due to the extent of her injury discussed multiple treatment options and risks and benefits, and informed operative consent was obtained. DESCRIPTION OF OPERATION: The patient was brought to the operating room and placed in the supine position. Then, 2 g of cefazolin was given preoperatively. After satisfactory local block anesthesia was administrated, a tourniquet, well padded, was placed on the left upper arm, the left upper extremity was prepped and draped in regular sterile routine fashion. The Flexor Carpi Radialis approach was performed. The FCR tendon was identified and was retracted ulnarly. The fascia was then opened, and the pronator quadratus was incised sharply from the lateral border of the distal radius. The fracture was identified and was and lightly debrided. We were able to anatomically reduce the distal radius fracture and provisionally fix with a K-wire. The fracture was provisionally reduced with the help of flouroscopy, and percutaneously pinned with a K-wire through the radial styloid. The lunate facet was a separate fragment that required independent treatment. After provisional plate fixation of the radial aspect, the lunar facet was tamped up into place and this was then fixed through the ulnar screw positions of the plate. The mini C-arm confirmed anatomic reduction and good alignment of the radial height as well as the inclination. Live fluoroscopy was briefly used in order to confirm that the screws were in the articular surface. The tourniquet was deflated, and hemostasis was ensured with electrocautery. The subcutaneous was then closed with 3-0 monocryl and the skin with running 3-0 monocryl. Dressing was then applied in the form of xeroform, 4x4, Coban and then her functional brace that she had been given in the clinic previously. She was awakened from anesthesia and transferred to the PACU in stable condition.
[2019-04-02 19:50] VITALS: BP 157/66
[2019-04-02] MEDS ORDERED: ACETAMINOPHEN 325 MG TABLET PO SCH (22:00)
== END 2019-04-02 19:10 | disposition home or self-care (01) ==
LOC: OROUT 10:21
PROVIDERS: ATTEND Orthopaedic Surgery
DX: S52.502A Unspecified fracture of the lower end of left radius, initial encounter for closed fracture (principal); S52.612A Displaced fracture of left ulna styloid process, initial encounter for closed fracture; S62.525A Nondisplaced fracture of distal phalanx of left thumb, initial encounter for closed fracture; S80.02XA Contusion of left knee, initial encounter; W10.9XXA Fall (on) (from) unspecified stairs and steps, initial encounter; I49.9 Cardiac arrhythmia, unspecified
CPT/HCPCS: 73100; 01830; 25607; J2795; A9270 ×2; J2250; J3490 ×4; J0690; J3010; J1170; J7060; J2704; J0131